=== PATIENT | female | born 1990 | race African-American/Black ===

== ENCOUNTER 2017-01-19 21:49 | Emergency (ER) | payer OTHER ==
[~2017-01-19] VITALS: Ht 165.1 cm; Wt 70.5 kg
[2017-01-19] MEDS ORDERED: ALLE180T33 PO (21:59)
[2017-01-19] MEDS ORDERED: QNAS80AE (21:59)
[2017-01-19] MEDS ORDERED: TETRACAINE 0.5% OPHTH SOLN 4ML OS ONE (23:30)
[2017-01-19] MEDS ORDERED: FLUORESCEIN OPHTH 1 MG STRIP OS ONE (23:30)
[2017-01-19] MEDS ORDERED: CIPROFLOXACIN 0.3% OPHTH SOLN 2.5ML OS ONE (23:45)
[2017-01-19] MEDS ORDERED: NORCO 5/325MG TABLET (BULK FOR ED) PO ONE (23:45)
[2017-01-20 00:05] VITALS: BP 118/68
== END 2017-01-20 00:18 | disposition home or self-care (01) ==
LOC: M ED 21:49
DX: S05.02XA Injury of conjunctiva and corneal abrasion without foreign body, left eye, initial encounter (principal); X58.XXXA Exposure to other specified factors, initial encounter; Y92.89 Other specified places as the place of occurrence of the external cause; Y93.89 Activity, other specified; Y99.8 Other external cause status; Z79.899 Other long term (current) drug therapy; Z88.8 Allergy status to other drugs, medicaments and biological substances; Z91.013 Allergy to seafood; J30.81 Allergic rhinitis due to animal (cat) (dog) hair and dander

== ENCOUNTER → 2017-10-05 | Outpatient (REF) | payer OTHER | LOC: M SFHCLERA 13:03 | DX: R50.9 Fever, unspecified (principal) ==

== ENCOUNTER 2019-12-17 10:31 | Emergency (ER) | payer OTHER ==
[~2019-12-17] VITALS: Ht 165.1 cm; Wt 73.7 kg
[~2019-12-17 10:31] MED LIST: ALLE180T33 PO; QNAS80AE
[2019-12-17] MEDS ORDERED: MIDOL (10:38)
[2019-12-17 11:42] LABS: BASO # 0.1 10^3/uL (0.0-0.2); BASO % 1.1 % (0.0-1.0); EOS # 0.1 10^3/uL (0.0-0.5); HEMATOCRIT 44.5 % (36.0-47.0); HEMOGLOBIN 14.2 g/dl (12.0-15.5); LYMPH # 2.2 10^3/uL (1.5-5.0); LYMPH % 39.2 % (24.0-44.0); MEAN CORPUSCULAR HGB CONC 31.9 g/dl (32.0-36.5); MEAN CORPUSCULAR VOLUME 87.6 fl (80.0-96.0); MONO # 0.7 10^3/uL (0.0-0.8); MONO % 12.6 % (0.0-5.0); NEUTROPHILS # 2.5 10^3/uL (1.5-8.5); NEUTROPHILS % 44.9 % (36.0-66.0); PLATELET COUNT, AUTOMATED 273 10^3/uL (150-450); RED BLOOD COUNT 5.08 10^6/uL (4.00-5.40); WHITE BLOOD COUNT 5.5 10^3/uL (4.0-10.0)
--- NOTE | 2019-12-17 12:01 | REPVR ---
PROCEDURE INFORMATION: Exam: US Pelvis Complete, Transabdominal and US Pelvis, Transvaginal and US Duplex Artery and Vein, Ovaries, Complete Exam date and time: 12/17/2019 11:50 AM Age: 29 years old Clinical indication: Other: Bleeding with intercouse TECHNIQUE: Imaging protocol: Real-time transabdominal and transvaginal pelvic ultrasound (complete) with image documentation. Transvaginal imaging was used for better evaluation of the endometrium and adnexa. Real-time duplex ultrasound scan of the arterial and venous flow of the ovaries with B-mode, color Doppler flow and spectral waveform analysis. COMPARISON: No relevant prior studies available. FINDINGS: Uterus/cervix: The uterus is anteverted, and measures 6.9 x 3.7 x 4.1 cm, as best visualized transvaginally. It is homogeneous in echotexture, without demonstrated lesion. An intrauterine device appears to be in satisfactory position. The endometrium measures 3 mm superior to the device. Right adnexa: The right ovary measures 1.4 x 2.2 x 2.3 cm, as seen transvaginally only, and appears unremarkable, allowing for some follicles. It demonstrates normal internal arterial and venous flow. Peak systolic velocity 6.4 cm/s, end-diastolic velocity 3.9 cm/s, resistive index 0.39. Left adnexa: The left ovary measures 2.5 x 2.0 x 1.4 cm, as seen transvaginally only, and appears unremarkable, allowing for some follicles. It demonstrates normal internal arterial and venous flow. Peak systolic velocity 8.1 cm/s, end-diastolic velocity 4.4 cm per 2nd, resistive index 0.45. Intraperitoneal space: Very small free fluid is present in the cul-de-sac. Bladder: The urinary bladder measures 4.3 x 3.6 x 2.4 cm and appears grossly unremarkable. IMPRESSION: 1. Anteverted uterus with an intrauterine device in place. 2. Essentially unremarkable ovaries, with normal internal flow and no torsion. 3. Very small free fluid. Electronically signed by: Álvaro Pineda On 12/17/2019 12:00:41 PM
[2019-12-17 12:09] LABS: BLOOD UREA NITROGEN 7 MG/DL (7-18); CALCIUM LEVEL 9.4 MG/DL (8.5-10.1); CARBON DIOXIDE LEVEL 26 MEQ/L (21-32); CHLORIDE LEVEL 106 MEQ/L (98-107); CREATININE FOR GFR 0.97 MG/DL (0.55-1.30); GLOMERULAR FILTRATION RATE > 60.0 (>60); GLUCOSE, FASTING 76 MG/DL (70-100); POTASSIUM SERUM 4.8 MEQ/L (3.5-5.1); SODIUM LEVEL 139 MEQ/L (136-145)
[2019-12-17 12:41] VITALS: BP 114/64
== END 2019-12-17 12:44 | disposition home or self-care (01) ==
LOC: M ED 10:31
DX: N93.9 Abnormal uterine and vaginal bleeding, unspecified (principal); N94.10 Unspecified dyspareunia; Z91.013 Allergy to seafood; Z97.5 Presence of (intrauterine) contraceptive device

== ENCOUNTER → 2019-12-22 | Outpatient (REF) | payer OTHER ==
[~2019-12-22] MED LIST changes: +MIDOL
[2019-12-22 19:28] LABS: CHLAMYDIA DNA AMPLIFICATION POSITIVE (NEGATIVE); GC DNA AMPLIFICATION NEGATIVE (NEGATIVE)
== END ==
LOC: M SFHCWAGY 17:15
PROVIDERS: ATTEND Obstetrics & Gynecology
DX: Z11.3 Encounter for screening for infections with a predominantly sexual mode of transmission (principal); Z12.4 Encounter for screening for malignant neoplasm of cervix

== ENCOUNTER 2020-01-16 09:59 | Emergency (ER) | payer OTHER ==
[~2020-01-16] VITALS: Ht 165.1 cm; Wt 74.5 kg
[2020-01-16 10:00] VITALS: BP 109/67
[2020-01-16] MEDS ORDERED: TETRACAINE 0.5% OPHTH SOLN 4ML OD ONE (10:45)
[2020-01-16] MEDS ORDERED: FLUORESCEIN OPHTH 1 MG STRIP OD ONE (10:45)
[2020-01-16] MEDS ORDERED: TOBRAMYCIN 0.3% OPHTH SOLN 5 ML OD STA (11:20)
[2020-01-16] MEDS ORDERED: CIPROFLOXACIN 0.3% OPHTH SOLN 2.5ML OD STA (11:22)
== END 2020-01-16 11:52 | disposition home or self-care (01) ==
LOC: M ED 09:59
DX: S05.01XA Injury of conjunctiva and corneal abrasion without foreign body, right eye, initial encounter (principal); Z97.3 Presence of spectacles and contact lenses; X58.XXXA Exposure to other specified factors, initial encounter; Y92.89 Other specified places as the place of occurrence of the external cause; Z91.013 Allergy to seafood; Z88.8 Allergy status to other drugs, medicaments and biological substances; J30.81 Allergic rhinitis due to animal (cat) (dog) hair and dander; Z79.899 Other long term (current) drug therapy

== ENCOUNTER → 2020-02-18 | Outpatient (REF) | payer OTHER ==
[2020-02-18 14:49] LABS: HEPATITIS A ANTIBODY IGM NEGATIVE (NEGATIVE); HEPATITIS B CORE ANTIBODY IGM NEGATIVE (NEGATIVE); HEPATITIS B SURFACE ANTIGEN NEGATIVE (NEGATIVE); HIV 1&2 SCREEN CENTAUR NEGATIVE (NEGATIVE)
[2020-02-18 15:21] LABS: CHLAMYDIA DNA AMPLIFICATION NEGATIVE (NEGATIVE); GC DNA AMPLIFICATION NEGATIVE (NEGATIVE)
== END ==
LOC: M PLALAB 11:07
PROVIDERS: ATTEND Obstetrics & Gynecology
DX: Z20.89 Contact with and (suspected) exposure to other communicable diseases (principal)
CPT/HCPCS: 36415; 86705; 86709; 86780; 86803; 87340; 87389; 87491; 87591; G0463